=== PATIENT | female | born 1940 | race Caucasian/White ===

== ENCOUNTER 2017-04-16 09:59 | Emergency (ER) | payer OTHER ==
[2017-04-16 12:36] VITALS: BP 120/60
== END 2017-04-16 12:36 | disposition home or self-care (01) ==
LOC: ED 09:59
DX: R11.10 Vomiting, unspecified (principal); R19.7 Diarrhea, unspecified; Z88.2 Allergy status to sulfonamides; I10 Essential (primary) hypertension; E11.9 Type 2 diabetes mellitus without complications
CPT/HCPCS: 82962